=== PATIENT | male | born 1995 | race Caucasian/White ===

== ENCOUNTER 2016-11-26 13:48 | Emergency (ER) | payer MEDICAID ==
[~2016-11-26] VITALS: Ht 162.6 cm; Wt 60.0 kg
[~2016-11-26 13:48] MED LIST: DOCU-144 PO; HYDR-3498 PO; HYDR-762 PO; METH750T93 PO; ONDA4TAB35 PO; TAMS0.4C2 PO
[2016-11-26 13:51] VITALS: Ht 162.6 cm; Wt 60.0 kg
[2016-11-26] MEDS ORDERED: ONDANSETRON 4 MG INJ IV STA (13:59)
[2016-11-26] MEDS ORDERED: HYDROmorphONE 1 MG/ML SYG IV STA ×2 (13:59→14:17)
[2016-11-26] MEDS ORDERED: SOD CHLORIDE 0.9% 1,000 ML IV STA (13:59)
[2016-11-26 14:25] LABS: ADD SCAN DIFF NO
[2016-11-26 14:29] LABS: BASOPHILS % 0.3 % (0.0-2.0); HEMATOCRIT 40.9 % (42.0-52.0); HEMOGLOBIN 14.5 g/dl (14.0-18.0); LYMPHOCYTES # 1.6 10^3/ul (0.8-2.9); LYMPHOCYTES % 20.9 % (15.0-51.0); MEAN CORPUSCULAR HEMOGLOBIN 31.3 pg (29.0-33.0); MEAN CORPUSCULAR HGB CONC 35.5 g/dl (32.0-37.0); MEAN CORPUSCULAR VOLUME 88.1 fl (82.0-101.0); MEAN PLATELET VOLUME 11.3 fl (7.4-10.4); MONOCYTE # 0.4 10^3/ul (0.3-0.9); MONOCYTES % 4.7 % (0.0-11.0); NEUTROPHIL # 5.5 10^3/ul (1.6-7.5); PLATELET COUNT 290 10^3/UL (140-415); RED BLOOD COUNT 4.64 10^6/ul (4.70-6.10); RED CELL DISTRIBUTION WIDTH 12.2 % (11.5-14.5); WHITE BLOOD COUNT 7.5 10^3/ul (4.8-10.8)
[2016-11-26 14:29] LABS: UR BILIRUBIN (Dip) NEGATIVE (NEGATIVE); UR BLOOD (Dip) NEGATIVE (NEGATIVE); UR COLOR LT. YELLOW (YELLOW); UR GLUCOSE (Dip) NEGATIVE (NEGATIVE); UR KETONES (Dip) NEGATIVE (NEGATIVE); UR LEUKOCYTE ESTERASE (Dip) NEGATIVE (NEGATIVE); UR NITRITE (Dip) NEGATIVE (NEGATIVE); UR TOTAL PROTEIN (Dip) NEGATIVE (NEGATIVE); UR UROBILINOGEN (Dip) 0.2 E.U./dL (0.1-1.0)
[2016-11-26] MEDS ORDERED: HYDROmorphONE 2 MG/ML SYG IV STA (14:32)
[2016-11-26] MEDS ORDERED: DICLOFENAC SODIUM 37.5 MG/ML VIAL IV STA (14:32)
[2016-11-26 14:36] LABS: ADD UMIC NO; UR CLARITY CLEAR (CLEAR)
[2016-11-26 14:37] LABS: ALBUMIN 5.2 g/dl (3.3-4.9)
[2016-11-26 14:38] LABS: POTASSIUM 3.6 mmol/L (3.5-5.1)
[2016-11-26 14:40] LABS: ALBUMIN/GLOBULIN RATIO 1.92; BILIRUBIN,INDIRECT 0.8 mg/dl (0-1.1); BILIRUBIN,TOTAL 0.8 mg/dl (0.2-1.3); CREATININE 0.68 mg/dl (0.61-1.24); TOTAL PROTEIN 7.9 g/dl (6.1-8.1)
[2016-11-26 14:41] LABS: CALCIUM 9.8 mg/dl (8.4-10.2)
--- NOTE | 2016-11-26 16:11 | RADRPT ---
PROCEDURE: CT Abdomen and Pelvis without contrast. CLINICAL INDICATION: Right flank pain. History of nephrolithiasis. TECHNIQUE: CT scan of the abdomen and pelvis without contrast was performed on a multi-slice CT banner without intravenous contrast. Coronal and sagittal reformatted images were obtained from the axial source images. Images were reviewed on a high-resolution PACS workstation. One or more of the following does reduction techniques were used: Automated exposure control; adjustment of the mA an d/or kV according to patient size; use of the aorta of reconstruction technique. The total exam CTD I equals 6.15 mGy and the total exam DLP equals 332.84 mGy-cm. COMPARISON: None available. FINDINGS: The lung bases are clear. Heart size is normal, and there is no evidence of pericardial thickening or effusion. Evaluation of the intra-abdominal contents is mildly limited due to lack of intravenous contrast com bined with paucity of intra-abdominal fat. The liver, spleen, and pancreas are normal given limitations of a noncontrast CT examination. The g allbladder is normal. The adrenal glands are normal. The kidneys without renal calculus or hydronephrosis. The aorta is of normal caliber. There is no retroperitoneal lymph node enlargment. There is no evidence of large or small bowel obstruction. The majority of a normal appendix is iden tified.. No free fluid or fluid collections are identified. No inflammatory changes are seen. No enlarged pelvic sidewall lymph nodes are seen. The bladder is within normal limits. No free fl uid is identified. The inguinal regions are unremarkable. The bones are intact. IMPRESSION: 1. No CT evidence of urolithiasis. 2. No CT evidence of acute intra-abdominal or pelvic process. RPTAT: KK .Nikolas Falcon MD, MD Date Time Electronically viewed and signed by .Nikolas Falcon MD, MD on 11/26/2016 16:11 .B/
[2016-11-26 16:51] VITALS: BP 90/45; PULSE 71; RESP 18
[2016-11-26] MEDS ORDERED: HYDR-902 PO (16:51)
[2016-11-26] MEDS ORDERED: TAMS-14 PO (16:51)
--- NOTE | 2016-11-26 16:55 | ERD ---
ER Documentation Chief Complaint Date/Time DATE: 11/26/16 TIME: 16:52 Chief Complaint SEVERRE RIGHT FLANK PAIN HPI This a 20-year-old male who says he has a history of kidney stones with prior right ureter stent placement and then removal. The patient says he has sudden onset of sharp right flank pain today radiate into the right lower quadrant consistent with his prior kidney stones. He says he has no hematuria or dysuria no fever no vomiting no nausea or diarrhea. ROS All systems reviewed and are negative except as per history of present illness. Medications Home Meds Active Scripts Hydrocodone/Acetaminophen ([place] 10-325 Tablet) 1 Each Tablet, 1 TAB PO Q6H Y for PAIN, #20 TAB Prov:JANNIE BARRETTSTOLOS A. DO 11/26/16 Tamsulosin Hcl* (Flomax*) 0.4 Mg Cap.er.24h, 0.4 MG PO QPM, #14 CAP Prov:LETIOSJANNIESTOLOS A. DO 11/26/16 Discontinued Scripts Ondansetron Hcl* (Zofran* ODT) 4 mg -ODT Tab.disper, 4 MG PO Q4H Y for NAUSEA AND OR VOMITING, #10 TAB Prov:JANNIE BARRETTSTOLOS A. DO 07/18/15 Tamsulosin Hcl* (Tamsulosin Hcl*) 0.4 Mg Cap.er.24h, 0.4 MG PO DAILY, #10 CAP Prov:LEKKOSAPOSTOLOS A. DO 07/18/15 Methocarbamol* (Robaxin*) 750 Mg Tablet, 750 MG PO TID, #20 TAB Prov:BAHMANOSJANNIESTOLOS A. DO 07/18/15 Hydrocodone Bit-Acetaminophen* ([place]*) 10-325 Mg Tablet, 1 TAB PO Q6 Y for PAIN , #20 TAB Prov:JANNIE BARRETTSTOLOS A. DO 07/18/15 Docusate Sodium* (Colace*) 100 Mg Capsule, 100 MG PO TID, #30 Prov:KEILY SAWYER 07/01/15 Allergies Allergies: Coded Allergies: metoclopramide (Verified Allergy, Unknown, 07/18/15) PMhx/Soc History of Surgery: No Anesthesia Reaction: No Hx Neurological Disorder: No Hx Respiratory Disorders: No Hx Cardiac Disorders: No Hx Psychiatric Problems: No Hx Miscellaneous Medical Probl: Yes (kidney stones) Hx Alcohol Use: No Hx Substance Use: No Hx Tobacco Use: No FmHx Family History: No coronary disease Physical Exam Vitals Vital Signs Date Time Temp Pulse Resp B/P Pulse Ox O2 Delivery O2 Flow Rate FiO2 11/26/16 15:35 81 18 145/86 98 Room Air 11/26/16 14:00 77 24 145/86 100 Room Air 11/26/16 13:51 100.7 118 29 162/97 96 Physical Exam Const: Well-developed, well-nourished, in pain Head: Atraumatic, normocephalic Eyes: Normal Conjunctiva, PERRLA, EOMI, normal sclera, no nystagmus ENT: Normal External Ears, Nose and Mouth, moist mucus membranes. Neck: Full range of motion. No meningismus, no lymphadenopathy. Resp: Clear to auscultation bilaterally, no wheezing, rhonchi, rales Cardio: Regular rate and rhythm, no murmurs, S1 S2 present Abd: Soft, moderate right midabdominal tenderness right lower abdominal tenderness, non distended. Normal bowel sounds, no guarding or rebound , no pulsitile abdominal masses or bruits Skin: No petechiae or rashes, no ecchymosis , no maculopapular rash Back: Right flank pain] Ext: No cyanosis, or edema, FROM x 4, normal inspection, neurovascularly intact x 4 Neur: Awake and alert, STR 5/5 x 4, sensation intact x 4, no focal findings, cerebellum intact Psych: Normal Mood and Affect Result Diagram: 11/26/16 1415 11/26/16 1415 Results 24 hrs Laboratory Tests Test 11/26/16 14:13 11/26/16 14:15 Urine Color LT. YELLOW Urine Clarity CLEAR Urine pH 7.0 Urine Specific [place] 1.015 Urine Ketones NEGATIVE Urine Nitrite NEGATIVE Urine Bilirubin NEGATIVE Urine Urobilinogen 0.2 E.U./dL Urine Leukocyte Esterase NEGATIVE Urine Microscopic RBC /HPF Urine Microscopic WBC /HPF Urine Hemoglobin NEGATIVE Urine Glucose NEGATIVE% Urine Total Protein NEGATIVE White Blood Count 7.510^3/ul Red Blood Count 4.6410^6/ul Hemoglobin 14.5g/dl Hematocrit 40.9% Mean Corpuscular Volume 88.1fl Mean Corpuscular Hemoglobin 31.3pg Mean Corpuscular Hemoglobin Concent 35.5g/dl Red Cell Distribution Width 12.2% Platelet Count 95403^3/UL Mean Platelet Volume 11.3fl Neutrophils % 74.0% Lymphocytes % 20.9% Monocytes % 4.7% Eosinophils % 0.0% Basophils % 0.3% Nucleated Red Blood Cells % 0.0/100WBC Neutrophils # 5.510^3/ul Lymphocytes # 1.610^3/ul Monocytes # 0.410^3/ul Eosinophils # 0.010^3/ul Basophils # 0.010^3/ul Nucleated Red Blood Cells # 0.010^3/ul Sodium Level 139mmol/L Potassium Level 3.6mmol/L Chloride Level 102mmol/L Carbon Dioxide Level 24mmol/L Anion Gap 17 Blood Urea Nitrogen 12mg/dl Creatinine 0.68mg/dl Glucose Level 124mg/dl Calcium Level 9.8mg/dl Total Bilirubin 0.8mg/dl Direct Bilirubin 0.00mg/dl Indirect Bilirubin 0.8mg/dl Aspartate Amino Transf (AST/SGOT) 25IU/L Alanine Aminotransferase (ALT/SGPT) 23IU/L Alkaline Phosphatase 67IU/L Total Protein 7.9g/dl Albumin 5.2g/dl Globulin 2.70g/dl Albumin/Globulin Ratio 1.92 Current Medications Medications (Trade) Dose Ordered Sig/Deuce Route PRN Reason Start Time Stop Time Status Last Admin Dose Admin Sodium Chloride (NS) 1,000 ml @ 1,000 mls/hr Q1H STAT IV 11/26/16 13:59 11/26/16 14:58 DC 11/26/16 14:05 Hydromorphone HCl (Dilaudid) 1 mg ONCE STAT IV 11/26/16 13:59 11/26/16 14:00 DC 11/26/16 14:05 Ondansetron HCl (Zofran Inj) 4 mg ONCE STAT IV 11/26/16 13:59 11/26/16 14:00 DC 11/26/16 14:05 Hydromorphone HCl (Dilaudid) 1 mg ONCE STAT IV 11/26/16 14:17 11/26/16 14:18 DC 11/26/16 14:20 Hydromorphone HCl (Dilaudid) 2 mg ONCE STAT IV 11/26/16 14:32 11/26/16 14:33 DC Diclofenac Sodium (Dyloject) 37.5 mg ONCE STAT IV 11/26/16 14:32 11/26/16 14:33 DC 11/26/16 14:36 Procedures/MDM PROCEDURE: CT Abdomen and Pelvis without contrast. CLINICAL INDICATION: Right flank pain. History of nephrolithiasis. TECHNIQUE: CT scan of the abdomen and pelvis without contrast was performed on a multi-slice CT scanner without intravenous contrast. Coronal and sagittal reformatted images were obtained from the axial source images. Images were reviewed on a high-resolution PACS workstation. One or more of the following does reduction techniques were used: Automated exposure control; adjustment of the mA and/or kV according to patient size; use of the aorta of reconstruction technique. The total exam CTDI equals 6.15 mGy and the total exam DLP equals 332.84 mGy-cm. COMPARISON: None available. FINDINGS: The lung bases are clear. Heart size is normal, and there is no evidence of pericardial thickening or effusion. Evaluation of the intra-abdominal contents is mildly limited due to lack of intravenous contrast combined with paucity of intra-abdominal fat. The liver, spleen, and pancreas are normal given limitations of a noncontrast CT examination. The gallbladder is normal. The adrenal glands are normal. The kidneys without renal calculus or hydronephrosis. The aorta is of normal caliber. There is no retroperitoneal lymph node enlargment. There is no evidence of large or small bowel obstruction. The majority of a normal appendix is identified.. No free fluid or fluid collections are identified. No inflammatory changes are seen. No enlarged pelvic sidewall lymph nodes are seen. The bladder is within normal limits. No free fluid is identified. The inguinal regions are unremarkable. The bones are intact. IMPRESSION: 1. No CT evidence of urolithiasis. 2. No CT evidence of acute intra-abdominal or pelvic process. RPTAT: KK .Nikolas Falcon MD, MD Date Time Electronically viewed and signed by .Nikolas Falcon MD, MD on 2016 16:11 .B/ CC: FRANKY BARRETT DO Patient needed multiple rounds of Dilaudid for pain control. The patient was asleep when I went into his room to let him know about his test results as soon as I woke him up starts yelling like he is in pain again. There are no evidence of kidney stones. The patient says that he had a small stone before. This possibility the patient is malingering for narcotic pain medication Discharge home Departure Diagnosis: Primary Impression: Flank pain Condition: Stable Patient Instructions: Flank Pain, Uncertain Cause Referrals: NO PRIMARY,CARE PHYSICIAN (PCP) FRANKY BARRETT DO Nov 26, 2016 16:55
[2016-11-26] MEDS ORDERED: ONDA4TAB14 PO (16:58)
[2016-11-26] MEDS ORDERED: HYDROCODONE/APAP (10/325) TAB PO ONE (17:30)
[2016-11-26] MEDS ORDERED: DIAZEPAM 5 MG/ML SYG IV ONE (18:00)
== END 2016-11-26 17:03 | disposition home or self-care (01) ==
LOC: E/R 13:48
DX: R10.31 Right lower quadrant pain (principal)
CPT/HCPCS: 36415; 74176; 80053; 81001; 81003; 85025; 96374; 96375; J1170; J2405; J3360; J7030; Z7502; Z7610

== ENCOUNTER 2016-12-02 16:03 | Emergency (ER) | payer MEDICAID ==
[~2016-12-02] VITALS: Ht 165.1 cm; Wt 60.0 kg
[~2016-12-02 16:03] MED LIST changes: -DOCU-144 PO; -HYDR-3498 PO; -HYDR-762 PO; +HYDR-902 PO; -METH750T93 PO; +ONDA4TAB14 PO; -ONDA4TAB35 PO; +TAMS-14 PO; -TAMS0.4C2 PO
[2016-12-02 16:06] VITALS: Ht 165.1 cm; Wt 60.0 kg
[2016-12-02] MEDS ORDERED: KETOROLAC 30 MG INJ IV STA (16:27)
[2016-12-02] MEDS ORDERED: SOD CHLORIDE 0.9% 1,000 ML IV ONE (16:30)
--- NOTE | 2016-12-02 16:33 | ERA ---
ER Documentation Chief Complaint Date/Time DATE: 12/02/16 TIME: 16:28 Chief Complaint rt flank pain with vomiting today (WANDY KENDALL PA-C) HPI Old male with a chief complaint flank pain. Patient describes the pain as "feeling like another kidney stone". Patient had a kidney stone 3 years ago that was removed. Patient describes the pain as 10 out of 10 starting at 1 AM this morning. Patient also complains of dysuria. Denies hematuria, vomiting, headache, changes in vision or hearing, constipation/diarrhea or worsening factors. Patient has not done anything at this time to relieve the symptoms. (WANDY KENDALL PA-C) ROS All systems reviewed and are negative except as per history of present illness. (WANDY KENDALL PA-C) Medications Home Meds Active Scripts Ibuprofen* (Motrin*) 600 Mg Tab, 600 MG PO Q6, #30 TAB Prov:WANDY KENDALL PA-C 12/02/16 Ondansetron (Ondansetron Odt) 4 Mg Tab.rapdis, 4 MG PO Q6H Y for NAUSEA AND/OR VOMITING, #10 TAB Prov:FRANKY BARRETT. DO 11/26/16 Hydrocodone/Acetaminophen ([place] 10-325 Tablet) 1 Each Tablet, 1 TAB PO Q6H Y for PAIN, #20 TAB Prov:FRANKY BARRETT. DO 11/26/16 Tamsulosin Hcl* (Flomax*) 0.4 Mg Cap.er.24h, 0.4 MG PO QPM, #14 CAP Prov:FRANKY BARRETT DO 11/26/16 Discontinued Scripts Ondansetron Hcl* (Zofran* ODT) 4 mg -ODT Tab.disper, 4 MG PO Q4H Y for NAUSEA AND OR VOMITING, #10 TAB Prov:FRANKY BARRETT DO 07/18/15 Tamsulosin Hcl* (Tamsulosin Hcl*) 0.4 Mg Cap.er.24h, 0.4 MG PO DAILY, #10 CAP Prov:JANNIE BARRETTSTRADHAS A. DO 07/18/15 Methocarbamol* (Robaxin*) 750 Mg Tablet, 750 MG PO TID, #20 TAB Prov:FRANKY BARRETT AMary DO 07/18/15 Hydrocodone Bit-Acetaminophen* ([place]*) 10-325 Mg Tablet, 1 TAB PO Q6 Y for PAIN , #20 TAB Prov:FRANKY BARRETT DO 07/18/15 Docusate Sodium* (Colace*) 100 Mg Capsule, 100 MG PO TID, #30 Prov:KEILY SAWYER 07/01/15 Allergies Allergies: Coded Allergies: metoclopramide (Verified Allergy, Unknown, 07/18/15) PMhx/Soc History of Surgery: No Anesthesia Reaction: No Hx Neurological Disorder: No Hx Respiratory Disorders: No Hx Cardiac Disorders: No Hx Psychiatric Problems: No Hx Miscellaneous Medical Probl: Yes (kidney stones) Hx Alcohol Use: No Hx Substance Use: No Hx Tobacco Use: No (WANDY KENDALL PA-C) Physical Exam Vitals Vital Signs Date Time Temp Pulse Resp B/P Pulse Ox O2 Delivery O2 Flow Rate FiO2 12/02/16 16:06 98.1 122 18 134/75 98 (BRIANNA GOLDMAN MD) Physical Exam Const: 20-year-old male in distress complaining of right flank pain. Writhing around in bed on initial encounter. Head: Atraumatic Eyes: Normal Conjunctiva ENT: Normal External Ears, Nose and Mouth. Neck: Full range of motion..~ No meningismus. Resp: Clear to auscultation bilaterally Cardio: Regular rate and rhythm, no murmurs Abd: Soft, non tender, non distended. Normal bowel sounds Skin: No petechiae or rashes Back: No midline or flank tenderness Ext: No cyanosis, or edema Neur: Awake and alert Psych: Normal Mood and Affect (WANDY KENDALL PA-C) Result Diagram: 12/02/16 1726 12/02/16 1726 Results 24 hrs Laboratory Tests Test 12/02/16 17:26 12/02/16 18:00 12/02/16 18:15 White Blood Count 7.710^3/ul Red Blood Count 4.2610^6/ul Hemoglobin 13.5g/dl Hematocrit 37.5% Mean Corpuscular Volume 88.0fl Mean Corpuscular Hemoglobin 31.7pg Mean Corpuscular Hemoglobin Concent 36.0g/dl Red Cell Distribution Width 12.1% Platelet Count 54774^3/UL Mean Platelet Volume 10.9fl Neutrophils % 72.4% Lymphocytes % 21.3% Monocytes % 6.1% Eosinophils % 0.0% Basophils % 0.1% Nucleated Red Blood Cells % 0.0/100WBC Neutrophils # 5.610^3/ul Lymphocytes # 1.710^3/ul Monocytes # 0.510^3/ul Eosinophils # 0.010^3/ul Basophils # 0.010^3/ul Nucleated Red Blood Cells # 0.010^3/ul Sodium Level 140mmol/L Potassium Level 3.6mmol/L Chloride Level 106mmol/L Carbon Dioxide Level 24mmol/L Anion Gap 14 Blood Urea Nitrogen 17mg/dl Creatinine 0.67mg/dl Glucose Level 108mg/dl Calcium Level 8.8mg/dl Total Bilirubin 0.5mg/dl Direct Bilirubin 0.00mg/dl Indirect Bilirubin 0.5mg/dl Aspartate Amino Transf (AST/SGOT) 20IU/L Alanine Aminotransferase (ALT/SGPT) 23IU/L Alkaline Phosphatase 46IU/L Total Protein 7.0g/dl Albumin 4.4g/dl Globulin 2.60g/dl Albumin/Globulin Ratio 1.69 Lipase 41U/L Urine Color LT. YELLOW Urine Clarity CLEAR Urine pH 5.5 Urine Specific [place] 1.025 Urine Ketones NEGATIVE Urine Nitrite NEGATIVE Urine Bilirubin NEGATIVE Urine Urobilinogen 0.2 E.U./dL Urine Leukocyte Esterase NEGATIVE Urine Microscopic RBC 0-2/HPF Urine Microscopic WBC 0-2/HPF Urine Mucus MODERATE Urine Hemoglobin TRACE Urine Glucose NEGATIVE% Urine Total Protein NEGATIVE Bedside Urine pH (LAB) 6.0 Bedside Urine Protein (LAB) 1+ Bedside Urine Glucose (UA) Negative Bedside Urine Ketones (LAB) Negative Bedside Urine Blood Trace-lysed Bedside Urine Nitrite (LAB) Negative Bedside Urine Leukocyte Esterase (L Negative Current Medications Medications (Trade) Dose Ordered Sig/Deuce Route PRN Reason Start Time Stop Time Status Last Admin Dose Admin Ketorolac Tromethamine 30 mg 30 mg ONCE STAT IV 12/02/16 16:27 12/02/16 16:28 DC 12/02/16 16:37 Sodium Chloride (NS) 1,000 ml @ 1,000 mls/hr Q1H ONCE IV 12/02/16 16:30 12/02/16 17:29 DC 12/02/16 16:37 Acetaminophen/ Hydrocodone Bitart ([place] ()) 1 tab ONCE ONCE PO 12/02/16 18:30 12/02/16 18:31 DC 12/02/16 18:20 (BRIANNA GOLDMAN MD) Results 24 hrs Laboratory Tests Test 12/02/16 17:26 White Blood Count 7.710^3/ul Red Blood Count 4.2610^6/ul Hemoglobin 13.5g/dl Hematocrit 37.5% Mean Corpuscular Volume 88.0fl Mean Corpuscular Hemoglobin 31.7pg Mean Corpuscular Hemoglobin Concent 36.0g/dl Red Cell Distribution Width 12.1% Platelet Count 47923^3/UL Mean Platelet Volume 10.9fl Neutrophils % 72.4% Lymphocytes % 21.3% Monocytes % 6.1% Eosinophils % 0.0% Basophils % 0.1% Nucleated Red Blood Cells % 0.0/100WBC Neutrophils # 5.610^3/ul Lymphocytes # 1.710^3/ul Monocytes # 0.510^3/ul Eosinophils # 0.010^3/ul Basophils # 0.010^3/ul Nucleated Red Blood Cells # 0.010^3/ul Sodium Level 140mmol/L Potassium Level 3.6mmol/L Chloride Level 106mmol/L Carbon Dioxide Level 24mmol/L Anion Gap 14 Blood Urea Nitrogen 17mg/dl Creatinine 0.67mg/dl Glucose Level 108mg/dl Calcium Level 8.8mg/dl Total Bilirubin 0.5mg/dl Direct Bilirubin 0.00mg/dl Indirect Bilirubin 0.5mg/dl Aspartate Amino Transf (AST/SGOT) 20IU/L Alanine Aminotransferase (ALT/SGPT) 23IU/L Alkaline Phosphatase 46IU/L Total Protein 7.0g/dl Albumin 4.4g/dl Globulin 2.60g/dl Albumin/Globulin Ratio 1.69 Lipase 41U/L Current Medications Medications (Trade) Dose Ordered Sig/Deuce Route PRN Reason Start Time Stop Time Status Last Admin Dose Admin Ketorolac Tromethamine 30 mg 30 mg ONCE STAT IV 12/02/16 16:27 12/02/16 16:28 DC 12/02/16 16:37 Sodium Chloride (NS) 1,000 ml @ 1,000 mls/hr Q1H ONCE IV 12/02/16 16:30 12/02/16 17:29 [place] 12/02/16 16:37 (WANDY KENDALL PA-C) Procedures/MDM 20-year-old male chief complaint of right flank pain. Patient was seen in the ER 1 week ago and had a CT scan that was unremarkable. Patient seems else we will go ahead and give 30 mg IV of Toradol and 1000 mL bolus of saline. Physical exam, including abdominal exam is unremarkable. Talk to my attending Dr. Vasquez, and considering the negative CT scan 1 week ago have decided to not expose him to the radiation of an additional CT. Have ordered urinalysis and culture to rule out infection and evaluate for signs of possible stone. Will reevaluate. Patient's blood and urine came back unremarkable. Have decided at this time that there is no reason to treat the patient pain is there is no evidence of a causative pathology. At this time I do not suspect nephrolithiasis, testicular torsion, hernia, appendicitis, intestinal ischemia, AAA, prostatitis, or epididymitis. On repeat exam abdomen remains soft and non- tender. Patient tolerates p.o. Have recommended that patient be followed up with a urologist for further evaluation. Will discharge the patient after a 10 mg [place]. I have discussed the case with my attending who agrees with the assessment and plan. The patient 's vitals are stable at this time and will now be discharged. (WANDY KENDALL PA-C) Patient seen in consultation with the physician branch assistant. Patient presents with severe 10/10 right flank pain and history of possible kidney stones. He states that his stent but patient upon review of the medical record has been seen for similar symptoms several times in the last year with [address] scans negative blood and several episodes of normal urine. Patient again today has no acute findings to suggest further intervention a repeat CT scan. Normal CT scan 1 week ago. Patient's frequent visits and symptoms and signs consistent with possible drug-seeking behavior. Patient was given [place] 10 mg by mouth after review of laboratory results today and counseled IV narcotics not appropriate given the absence of any acute findings or significant medical reason identified to justify continued pain treatment. Patient was discharged with Tylenol and instructions to follow-up with urology. The patient was stable with no new complaints during the ER course. Clinically, there is no current evidence to suggest meningitis, sepsis, acute abdomen, pneumonia, acute coronary syndrome, pulmonary embolism, or any other emergent condition appearing to require further evaluation or hospitalization. The patient should certainly return for any new or worsening symptoms per the aftercare instructions. They should otherwise follow-up with her primary care doctor for reevaluation this week. (BRIANNA GOLDMAN MD) Departure Diagnosis: Primary Impression: Abdominal pain Qualified Code: R10.9 - Abdominal pain, unspecified location Additional Impression: Acute right flank pain Condition: Stable Additional Instructions: Follow up with your PCP within the next 1-3 days for a more thorough evaluation and a possible referral to a specialist. Return the the emergency department immediately if symptoms worsen or change. If you have any questions regarding medications, ask your pharmacist or us before you leave. If any adverse reactions occur while taking your medications, discontinue the treatment and return to the emergency department immediately. Take your medications as directed, and complete the entire course of treatment. WANDY KENDALL PA-C Dec 02, 2016 16:33 BRIANNA GOLDMAN MD Dec 02, 2016 19:32
[2016-12-02 17:38] LABS: ADD SCAN DIFF NO
[2016-12-02 17:48] LABS: BASOPHILS % 0.1 % (0.0-2.0); HEMATOCRIT 37.5 % (42.0-52.0); HEMOGLOBIN 13.5 g/dl (14.0-18.0); LYMPHOCYTES # 1.7 10^3/ul (0.8-2.9); LYMPHOCYTES % 21.3 % (15.0-51.0); MEAN CORPUSCULAR HEMOGLOBIN 31.7 pg (29.0-33.0); MEAN PLATELET VOLUME 10.9 fl (7.4-10.4); MONOCYTE # 0.5 10^3/ul (0.3-0.9); MONOCYTES % 6.1 % (0.0-11.0); NEUTROPHIL # 5.6 10^3/ul (1.6-7.5); NEUTROPHILS % 72.4 % (39.0-77.0); PLATELET COUNT 277 10^3/UL (140-415); RED BLOOD COUNT 4.26 10^6/ul (4.70-6.10); RED CELL DISTRIBUTION WIDTH 12.1 % (11.5-14.5); WHITE BLOOD COUNT 7.7 10^3/ul (4.8-10.8)
[2016-12-02 17:50] LABS: ALBUMIN 4.4 g/dl (3.3-4.9)
[2016-12-02 17:51] LABS: POTASSIUM 3.6 mmol/L (3.5-5.1)
[2016-12-02 17:53] LABS: ALBUMIN/GLOBULIN RATIO 1.69; BILIRUBIN,INDIRECT 0.5 mg/dl (0-1.1); BILIRUBIN,TOTAL 0.5 mg/dl (0.2-1.3); CREATININE 0.67 mg/dl (0.61-1.24)
[2016-12-02 17:54] LABS: CALCIUM 8.8 mg/dl (8.4-10.2)
[2016-12-02] MEDS ORDERED: IBUP-1542 PO (18:03)
[2016-12-02 18:14] LABS: URINE BLOOD (Dip) POC Trace-lysed (NEGATIVE)
[2016-12-02 18:25] LABS: ADD UMIC YES; URINE BILIRUBIN (Dip) NEGATIVE (NEGATIVE); URINE BLOOD (Dip) TRACE (NEGATIVE); URINE COLOR LT. YELLOW (YELLOW); URINE GLUCOSE (Dip) NEGATIVE (NEGATIVE); URINE KETONES (Dip) NEGATIVE (NEGATIVE); URINE LEUKOCYTE ESTERASE (Dip) NEGATIVE (NEGATIVE); URINE NITRITE (Dip) NEGATIVE (NEGATIVE); URINE TOTAL PROTEIN (Dip) NEGATIVE (NEGATIVE); URINE UROBILINOGEN (Dip) 0.2 E.U./dL (0.1-1.0)
[2016-12-02] MEDS ORDERED: HYDROCODONE/APAP (10/325) TAB PO ONE (18:30)
[2016-12-02 19:00] LABS: MUCUS,URINE MODERATE; URINE RBCS 0-2 /HPF (0)
== END 2016-12-02 18:40 | disposition home or self-care (01) ==
LOC: FTE 16:03
DX: R10.9 Unspecified abdominal pain (principal)
CPT/HCPCS: 80053; 80076; 81001; 83690; 85025; 87086; 96374; J1885; J7030; Z7502; Z7610; 81003